=== PATIENT | male | born 1995 | race African-American/Black ===

== ENCOUNTER → 2019-06-01 | Outpatient (CLI) | payer BC ==
[~2019-06-01] VITALS: Ht 190.5 cm; Wt 98.6 kg
[~2019-06-01] MED LIST: ACETAMINOPHEN 325 MG TABLET ONE; ACETAMINOPHEN 325 MG TABLET PO NR; INFLIXIMAB DYYB IV NR; NORMAL SALINE IV NR; diphenhydrAMINE 50 MG/ML INJ (BENADRYL) IV NR; diphenhydrAMINE 50 MG/ML INJ (BENADRYL) ONE
[2019-06-01 14:30] VITALS: BP 129/70
--- NOTE | 2019-06-01 17:00 | NUR ---
INFUSION COMPLETED, TOLERATED WELL, MONITORED FOR 30 MINUTES AFTER. NO CHANGE, NO C/O.
== END ==
LOC: SDC 13:50
PROVIDERS: ATTEND Internal Medicine
DX: K50.90 Crohn's disease, unspecified, without complications (principal)
CPT/HCPCS: 96365; 96366; 96374; Q5102

== ENCOUNTER 2019-11-19 10:52 | Emergency (ER) | payer BC ==
[~2019-11-19] VITALS: Ht 190.5 cm; Wt 96.3 kg
--- NOTE | 2019-11-19 11:03 | ED GI ---
General Stated Complaint: CONSTIPATION Source of Information: Patient Exam Limitations: No Limitations History of Present Illness Date Seen by Provider: Nov 19, 2019 Time Seen by Provider: 11:01 Initial Comments To ER with reports of constipation. He's had no bowel movement in 8 days. He takes Inflectra IV every 8 weeks for Crohn's disease. He took a Dulcolax suppository last night, he is already on Metamucil and MiraLAX. Denies much abdominal pain denies any nausea vomiting fevers. States that he feels the urge to have a bowel movement but is unable to do so. He had an episode similar to this in the past and was given a soapsuds enema which did alleviate his problems. 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 Timing/Duration: 6-7 Days Severity/Quality: Moderate Location: Generalized Abdomen Radiation: No Radiation Associated Symptoms: Nausea/Vomiting Allergies and Home Medications Allergies Coded Allergies: No Known Drug Allergies (Unverified , 06/01/19) Home Medications Magnesium Citrate 296 Ml Solution, 296 ML PO ONCE Prescribed by: FABIOLA SPENCER on 11/19/19 1346 Patient Home Medication List Home Medication List Reviewed: Yes Review of Systems Review of Systems Constitutional: see HPI EENTM: No Symptoms Reported Respiratory: No Symptoms Reported Cardiovascular: No Symptoms Reported Gastrointestinal: See HPI; Denies Abdominal Pain; Constipated Genitourinary: No Symptoms Reported Musculoskeletal: no symptoms reported Skin: no symptoms reported Psychiatric/Neurological: No Symptoms Reported Endocrine: No Symptoms Reported Hematologic/Lymphatic: No Symptoms Reported Past Qnptubi-Chsqxr-Dgnpcb Hx Patient Social History Recent Foreign Travel: No Contact w/Someone Who Travel: No Physical Exam Vital Signs Vital Signs - First Documented 11/19/19 11:00 Temp 36.7 Pulse 72 Resp 18 B/P (MAP) 137/85 (102) Pulse Ox 96 O2 Delivery Room Air Capillary Refill : Height/Weight/BMI Height: '" Weight: lbs. oz. kg; BMI Method: General Appearance: WD/WN, no apparent distress Respiratory: normal breath sounds, no respiratory distress, no accessory muscle use Cardiovascular: regular rate, rhythm, no murmur Gastrointestinal: normal bowel sounds; No non tender; soft Extremities: normal range of motion Neurologic/Psychiatric: alert, normal mood/affect, oriented x 3 Skin: normal color, warm/dry Progress/Results/Core Measures Results/Orders My Orders Orders - FABIOLA SPENCER APRN Acute Abd Series (11/19/19 11:03) Soap Suds Enema (11/19/19 11:03) Vital Signs/I&O 11/19/19 11:00 Temp 36.7 Pulse 72 Resp 18 B/P (MAP) 137/85 (102) Pulse Ox 96 O2 Delivery Room Air Departure Communication (Admissions) [id number]-He did have a large BM after 2 soapsuds enemas. Will dc to home and have him follow up with [employer]. He has no pain or bloody stools, no fevers or chills. No value to CT imaging or laboratory workup. Impression Primary Impression: Fecal impaction Disposition: 01 HOME, SELF-CARE Condition: Stable Departure-Patient Inst. Decision time for Depature: 11:44 Referrals: NO,LOCAL PHYSICIAN (PCP) Primary Care Physician IVAN BAY MD Patient Instructions: Fecal Impaction (DC) Scripts Magnesium Citrate (Magnesium Citrate) 296 Ml Solution 296 ML PO ONCE, #1 EA Prov: FABIOLA SPENCER APRN 11/19/19 Copy Copies To 1: IVAN BAY MD, PETER J APRN Nov 19, 2019 11:03
--- OUTSIDE RECORDS SUMMARY | 2019-11-19 11:14 | XMS REPORT | Continuity of Care Document ---
Author Organization Unknown Address Unknown Phone Unavailable Allergies Active Description Code Type Severity Reaction Onset Reported/Identified Relationship to Patient Clinical Status Yes No Known Drug Allergies [id number] Drug Allergy Unknown N/A 06/01/2019 Medications There is no data. Problems Date Dx Coded Attending Type Code Diagnosis Diagnosed By 06/02/2019 SHANIQUE BURGESS, IVAN Her Ot K50.90 CROHN'S DISEASE, UNSPECIFIED, WITHOUT CO 06/28/2019 IVAN BAY MD Ot K50.90 CROHN'S DISEASE, UNSPECIFIED, WITHOUT CO Procedures There is no data. Results There is no data. Encounters ACCT No. Visit Date/Time Discharge Status Pt. Type Provider Facility Loc./Unit Complaint [id number] 07/27/2019 13:00:00 020 23:59:59 CLS Preadmit IVAN BAY MD [facility] CROHNS DISEASE [id number] 06/01/2019 13:50:00 020 23:59:59 CLS Outpatient IVAN BAY MD [facility] CROHNS DISEASE
--- NOTE | 2019-11-19 11:16 | NUR ---
TO X RAY PER W/C
--- NOTE | 2019-11-19 11:45 | Diagnostic Imaging Report ---
INDICATION: Constipation. Time of Exam: 11:25 AM FINDINGS: The heart size is normal. The lungs are clear. No free air is identified. The bowel gas pattern demonstrates a focal mild to moderately distended bowel loop in the central left abdomen. Remaining bowel loops are normal caliber. There is moderate stool in the colon. No pathologic calcifications are seen. IMPRESSION: 1. Nonspecific bowel gas pattern with focal moderate gaseous distended bowel loop in the left abdomen. 2. There is moderate stool in the colon suggestive of constipation. Dictated by: Dictated on workstation # [id number]
--- NOTE | 2019-11-19 11:46 | NUR ---
PATIENT WANTD TO GIVE SELF SS ENEMA INSTRUCTED BY Miriam KAY APRN HOW TO GIVE
--- NOTE | 2019-11-19 13:05 | NUR ---
Asim chong in [facility] - 11/19/19 at 1307 by PMCCLURE PATIENT
--- NOTE | 2019-11-19 13:07 | NUR ---
PATIENT CON'T HAVE BM.
[2019-11-19] MEDS ORDERED: MAGN296S71 PO (13:46)
[2019-11-19 13:52] VITALS: BP 137/85
== END 2019-11-19 13:52 | disposition home or self-care (01) ==
LOC: EDUNIT# 10:52 → ER 10:53
DX: K59.00 Constipation, unspecified (principal)
CPT/HCPCS: 74022

== ENCOUNTER 2021-01-13 19:01 | Emergency (ER) | payer BC ==
[~2021-01-13 19:01] MED LIST changes: -ACETAMINOPHEN 325 MG TABLET ONE; -ACETAMINOPHEN 325 MG TABLET PO NR; -INFLIXIMAB DYYB IV NR; +MAGN296S71 PO; -NORMAL SALINE IV NR; -diphenhydrAMINE 50 MG/ML INJ (BENADRYL) IV NR; -diphenhydrAMINE 50 MG/ML INJ (BENADRYL) ONE
--- NOTE | 2021-01-13 19:36 | ED Upper Extremity ---
General Stated Complaint: R ELBOW PREV INJ/SWELLING Source: patient Exam Limitations: no limitations (FABIOLA SPENCER APRN) History of Present Illness Date Seen by Provider: Jan 13, 2021 Time Seen by Provider: 19:31 Initial Comments To ER with right elbow and forearm swelling and pain. About 2 weeks ago he had an abscess to one of his hips and had incision and drainage done and was on Bactrim. Then last weekend, 7 days ago during a football game for [employer] [facility] [employer] where he plays he hit his right elbow on a player's helmet. Does not believe there was any break in the skin that he noticed. He initially had a little swelling at the site but subsequently has developed swelling to encompass the ulnar side of the forearm. No fevers or chills. He saw [facility] this week and was given doxycycline but denies much improvement. He is on infliximab every 8 weeks infusion for Crohn's disease Onset: last week Severity: moderate Pain/Injury Location: right elbow Modifying Factors: Worse With Movement (FABIOLA SPENCER APRN) Allergies and Home Medications Allergies Coded Allergies: No Known Drug Allergies (Unverified , 06/01/19) Patient Home Medication List Home Medication List Reviewed: Yes (FABIOLA SPENCER APRN) Clindamycin HCl (Clindamycin HCl) 300 Mg Capsule, 300 MG PO QID Prescribed by: FABIOLA SPENCER on 01/13/21 2111 Magnesium Citrate (Magnesium Citrate) 296 Ml Solution, 296 ML PO ONCE Prescribed by: FABIOLA SPENCER on 11/19/19 1346 Review of Systems Constitutional: see HPI; No chills, No fever EENTM: see HPI Respiratory: no symptoms reported Cardiovascular: no symptoms reported Genitourinary: no symptoms reported Musculoskeletal: no symptoms reported Skin: see HPI Psychiatric/Neurological: No Symptoms Reported (FABIOLA SPENCER APRN) Past Rrxrmxj-Zcxclp-Vbrtyd Hx Past Medical History Surgeries: Yes (ANAL ABSCESS) Respiratory: No Cardiac: No Neurological: No Genitourinary: No Gastrointestinal: Yes Crohns Disease Musculoskeletal: No Endocrine: No HEENT: No Cancer: No Psychosocial: No (FABIOLA SPENCER APRN) Physical Exam Vital Signs Vital Signs - First Documented (STEPH AC DO) Vital Signs Capillary Refill : (FABIOLA SPENCER APRN) Height, Weight, BMI Height: '" Weight: lbs. oz. kg; 26.00 BMI Method: General Appearance: WD/WN, no apparent distress Respiratory: no respiratory distress, no accessory muscle use Gastrointestinal: normal bowel sounds, non tender Shoulder: normal inspection, non-tender Elbow/Forearm: Right, pain, swelling (There is swelling about the ulnar and proximal volar side of the right forearm. There is a fluctuant draining punctum over the olecranon bursa. Culture of this was collected and sent to lab.) Wrist: Yes normal inspection, Yes non-tender Hand: normal inspection, non-tender Neurologic/Psychiatric: alert, normal mood/affect, oriented x 3 Skin: normal color, warm/dry (FABIOLA SPENCER APRN) Progress/Results/Core Measures Results/Orders Lab Results Laboratory Tests Test 01/13/21 19:30 Range/Units White Blood Count 10.5 4.3-11.0 10^3/uL Red Blood Count 5.05 4.30-5.52 10^6/uL Hemoglobin 14.3 13.3-17.7 g/dL Hematocrit 44 40-54 % Mean Corpuscular Volume 87 80-99 fL Mean Corpuscular Hemoglobin 28 25-34 pg Mean Corpuscular Hemoglobin Concent 33 32-36 g/dL Red Cell Distribution Width 12.6 10.0-14.5 % Platelet Count 200 130-400 10^3/uL Mean Platelet Volume 11.4 9.0-12.2 fL Immature Granulocyte % (Auto) 0 % Neutrophils (%) (Auto) 78 H 42-75 % Lymphocytes (%) (Auto) 14 12-44 % Monocytes (%) (Auto) 7 0-12 % Eosinophils (%) (Auto) 0 0-10 % Basophils (%) (Auto) 0 0-10 % Neutrophils # (Auto) 8.2 H 1.8-7.8 10^3/uL Lymphocytes # (Auto) 1.5 1.0-4.0 10^3/uL Monocytes # (Auto) 0.7 0.0-1.0 10^3/uL Eosinophils # (Auto) 0.0 0.0-0.3 10^3/uL Basophils # (Auto) 0.0 0.0-0.1 10^3/uL Immature Granulocyte # (Auto) 0.0 0.0-0.1 10^3/uL Sodium Level 141 135-145 MMOL/L Potassium Level 4.0 3.6-5.0 MMOL/L Chloride Level 107 98-107 MMOL/L Carbon Dioxide Level 22 21-32 MMOL/L Anion Gap 12 5-14 MMOL/L Blood Urea Nitrogen 15 7-18 MG/DL Creatinine 1.25 0.60-1.30 MG/DL Estimat Glomerular Filtration Rate 87 BUN/Creatinine Ratio 12 Glucose Level 109 H 70-105 MG/DL Calcium Level 10.1 8.5-10.1 MG/DL Corrected Calcium 9.9 8.5-10.1 MG/DL Total Bilirubin 1.5 H 0.1-1.0 MG/DL Aspartate Amino Transf (AST/SGOT) 21 5-34 U/L Alanine Aminotransferase (ALT/SGPT) 23 0-55 U/L Alkaline Phosphatase 74 40-136 U/L C-Reactive Protein High Sensitivity 0.52 H 0.00-0.50 MG/DL Total Protein 7.4 6.4-8.2 GM/DL Albumin 4.2 3.2-4.5 GM/DL (STEPH AC DO) Departure Communication (Admissions) Family Conversation NAME: MEHNAZ DORSEY [facility] REC#: [id number] PT STATUS: REG ER : 1995 PHYSICIAN: FABIOLA SPENCER APRN ADMIT DATE: 01/13/21/ER Draft Date of Exam:01/13/21 CT EXTREMITY UPPER RIGHT W PROCEDURE: CT right upper extremity with contrast. TECHNIQUE: Axial images were obtained through the right upper extremity after intravenous contrast and reformatted into coronal and sagittal oblique planes. Auto Exposure Controls were utilized during the CT exam to meet ALARA standards for radiation dose reduction. INDICATION: Infection. Pain. EXAMINATION: Post IV contrast-enhanced CT of the right elbow performed. COMPARISON: No priors or plain films for comparison or correlation. FINDINGS: There is subcutaneous edema dorsally about the mid to distal forearm through the elbow and terminating just above the olecranon. No rim-enhancing discrete or drainable fluid collection. There are no findings of a diana abscess. No soft tissue gas. There is no displacement of the fat pads. No elbow joint effusion. No abnormal periosteal reaction. No bony destructive process. No fracture demonstrated. No opaque foreign body and no soft tissue gas. IMPRESSION: Dorsal subcutaneous edema. Given the history presumed cellulitis but no abscess or drainable fluid collection. No joint effusion, foreign body or gas. Dictated on workstation # [id number] Dict: 01/13/212024 Trans: 01/13/212058 [facility] [id number] Interpreted by: VIKAS ROMANO Electronically signed by: (FABIOLA SPENCER APRN) Impression Primary Impression: Cellulitis of right arm Disposition: HOME, SELF-CARE Condition: Stable Departure-Patient Inst. Decision time for Depature: 21:09 (FABIOLA SPENCER APRN) Referrals: [facility] (PCP) Primary Care Physician Patient Instructions: Cellulitis (Skin Infection), Adult (DC) Add. Discharge Instructions: 1. Return to ER for any concerns 2. Follow-up with your doctor next week 3. add the new antibiotic called clindamycin to your current antibiotic doxycycline. Pain medication as directed. Keep the arm elevated as much as possible. Follow-up with [facility] on Friday and return to ER in the meantime for any worsening. Scripts Clindamycin HCl (Clindamycin HCl) 300 Mg Capsule 300 MG PO QID, #28 CAP Prov: FABIOLA SPENCER APRN 01/13/21 ATTENDING PHYSICIAN NOTE: I WAS PHYSICALLY PRESENT ER PHYSICIAN WHEN THIS PATIENT WAS IN ER, BUT I WAS NOT INVOLVED IN DECISION MAKING OR ANY CARE OF THIS PATIENT. (STEPH AC DO) FABIOLA SPENCER APRN Jan 13, 2021 19:36 STEPH AC DO Jan 15, 2021 04:37
[2021-01-13 19:39] LABS: BASOPHILS % (AUTO) 0 % (0-10); EOSINOPHILS % (AUTO) 0 % (0-10); HEMATOCRIT 44 % (40-54); HEMOGLOBIN 14.3 g/dL (13.3-17.7); LYMPHOCYTES # (AUTO) 1.5 10^3/uL (1.0-4.0); LYMPHOCYTES % (AUTO) 14 % (12-44); MEAN CORPUSCULAR HEMOGLOBIN 28 pg (25-34); MEAN CORPUSCULAR HGB CONC 33 g/dL (32-36); MEAN CORPUSCULAR VOLUME 87 fL (80-99); MEAN PLATELET VOLUME 11.4 fL (9.0-12.2); MONOCYTES # (AUTO) 0.7 10^3/uL (0.0-1.0); MONOCYTES % (AUTO) 7 % (0-12); NEUTROPHILS # (AUTO) 8.2 10^3/uL (1.8-7.8); NEUTROPHILS % (AUTO) 78 % (42-75); PLATELET COUNT 200 10^3/uL (130-400); WHITE BLOOD COUNT 10.5 10^3/uL (4.3-11.0)
[2021-01-13 20:07] LABS: ALBUMIN 4.2 GM/DL (3.2-4.5); BILIRUBIN,TOTAL 1.5 MG/DL (0.1-1.0); CALCIUM 10.1 MG/DL (8.5-10.1); CREATININE SERUM 1.25 MG/DL (0.60-1.30); TOTAL PROTEIN 7.4 GM/DL (6.4-8.2)
[2021-01-13] MEDS ORDERED: NS 100 ML (IVPB) BAG IV ONE (20:15)
[2021-01-13] MEDS ORDERED: HOLD METFORMIN - RECEIVED CONTRAST 20 ML VIAL IV SCH (20:15)
[2021-01-13] MEDS ORDERED: IOHEXOL 350 MG/ML 100 ML (OMNIPAQUE 350) VIAL IV ONE (20:15)
[2021-01-13] MEDS ORDERED: CLINDAMYCIN 900 MG/50 ML IVPB 50 ML IV ONE (20:15)
--- NOTE | 2021-01-13 21:00 | Diagnostic Imaging Report ---
PROCEDURE: CT right upper extremity with contrast. TECHNIQUE: Axial images were obtained through the right upper extremity after intravenous contrast and reformatted into coronal and sagittal oblique planes. Auto Exposure Controls were utilized during the CT exam to meet ALARA standards for radiation dose reduction. INDICATION: Infection. Pain. EXAMINATION: Post IV contrast-enhanced CT of the right elbow performed. COMPARISON: No priors or plain films for comparison or correlation. FINDINGS: There is subcutaneous edema dorsally about the mid to distal forearm through the elbow and terminating just above the olecranon. No rim-enhancing discrete or drainable fluid collection. There are no findings of a diana abscess. No soft tissue gas. There is no displacement of the fat pads. No elbow joint effusion. No abnormal periosteal reaction. No bony destructive process. No fracture demonstrated. No opaque foreign body and no soft tissue gas. IMPRESSION: Dorsal subcutaneous edema. Given the history presumed cellulitis but no abscess or drainable fluid collection. No joint effusion, foreign body or gas. Dictated by: Dictated on workstation # [id number]
[2021-01-13] MEDS ORDERED: CLIN300C12 PO (21:11)
[2021-01-13] MEDS ORDERED: RX-CLINDAMYCIN 150 MG (CLEOCIN) CAP PPK#4 PO STA (21:11)
[2021-01-13 21:25] VITALS: BP 128/78
== END 2021-01-13 21:25 | disposition home or self-care (01) ==
LOC: EDUNIT# 19:01 → ER 19:03
DX: L03.113 Cellulitis of right upper limb (principal); K50.90 Crohn's disease, unspecified, without complications; Z79.899 Other long term (current) drug therapy
CPT/HCPCS: 36415; 73201; 80053; 85025; 86141; 87070; 87077; 87186; 87205

== ENCOUNTER 2021-02-27 21:56 | Emergency (ER) | payer BC, OTHER ==
[~2021-02-27] VITALS: Ht 190 cm; Wt 95.0 kg
[~2021-02-27 21:56] MED LIST changes: +CLIN-144 PO
--- NOTE | 2021-02-27 22:48 | ED General ---
General Chief Complaint: - Reproductive Stated Complaint: BLOOD IN STOOL Source of Information: Patient History of Present Illness Date Seen by Provider: Feb 27, 2021 Time Seen by Provider: 22:38 Initial Comments PT ARRIVES VIA POV FROM HOME STATES HE HAS CROHN'S DISEASE, AND GETS INFLECTRA INFUSIONS EVERY 8 WEEKS, IS OVERDUE BY A COUPLE OF WEEKS AND WAS SUPPOSED TO GET AN INFUSION TODAY,BUT DID NOT GO STATES HE HAD HAD SOME BLOODY STOOLS--BUT NO BM FOR THE LAST 2 DAYS. HAS CHRONIC CONSTIPATION, BUT DOES NOT TAKE ANY MEDICATION FOR IT. PT IS HERE TONIGHT BECAUSE HE HAS HAD BLOOD IN HIS URINE 3 TIMES TODAY NO PAIN ON URINATION OR ANY OTHER URINARY SYMPTOMS NO ABDOMINAL PAIN OR FLANK PAIN OR BACK PAIN NO FEVER NO NAUSEA/VOMITING PCP: NONE GI: DR. LIEBERMAN /[facility] Allergies and Home Medications Allergies Coded Allergies: No Known Drug Allergies (Unverified , 06/01/19) Patient Home Medication List Home Medication List Reviewed: Yes Clindamycin HCl (Clindamycin HCl) 300 Mg Capsule, 300 MG PO QID Prescribed by: FABIOLA SPENCER on 01/13/211 Magnesium Citrate (Magnesium Citrate) 296 Ml Solution, 296 ML PO ONCE Prescribed by: FABIOLA SPENCER on 11/19/19 1346 Review of Systems Review of Systems Constitutional: no symptoms reported; No dizziness, No fever Respiratory: no symptoms reported Cardiovascular: no symptoms reported Gastrointestinal: see HPI; No abdominal pain; constipation; No diarrhea, No nausea, No vomiting; other (BLOODY STOOLS) Genitourinary: see HPI; No discharge, No dysuria, No frequency; hematuria; No hesitancy, No nocturia, No pain Musculoskeletal: no symptoms reported; No back pain Skin: no symptoms reported Psychiatric/Neurological: No Symptoms Reported Hematologic/Lymphatic: No Symptoms Reported Immunological/Allergic: no symptoms reported Past Wjikbnj-Nywelv-Cjytqc Hx Patient Social History Tobacco Use?: No Substance use?: Yes Substance type: Marijuana Alcohol Use?: No Past Medical History Surgery/Hospitalization HX: MED HX: [facility] Surgeries: Yes (ANAL ABSCESS) Rectal Respiratory: No Cardiac: No Neurological: No Genitourinary: No Gastrointestinal: Yes Crohns Disease Musculoskeletal: No Endocrine: No HEENT: No Cancer: No Psychosocial: No Integumentary: No Blood Disorders: No Family Medical History PAST SURGICAL HISTORY: -ANAL ABSCESS I&D -EGD/COLONOSCOPY Physical Exam Vital Signs Vital Signs - First Documented 02/27/21 22:46 Pulse 78 Resp 16 B/P (MAP) 120/89 (99) Pulse Ox 98 O2 Delivery Room Air Capillary Refill : Height, Weight, BMI Height: '" Weight: lbs. oz. kg; 26.00 BMI Method: General Appearance: No Apparent Distress, WD/WN HEENT: PERRL/EOMI; No Pale Conjunctivae (L), No Pale Conjunctivae (R) Neck: Normal Inspection Respiratory: Normal Breath Sounds, No Accessory Muscle Use, No Respiratory D istress Cardiovascular: Regular Rate, Rhythm, No Murmur, Normal Peripheral Pulses Gastrointestinal: Normal Bowel Sounds, No Organomegaly, No Pulsatile Mass, Non Tender, Soft Back: No CVA Tenderness Extremity: Normal Capillary Refill, Normal Inspection, Normal Range of Motion, Non Tender, No Calf Tenderness, No Pedal Edema Neurologic/Psychiatric: Alert, Oriented x3, No Motor/Sensory Deficits, Normal Mood/Affect, manager of procurement II-XII Norm as Tested Skin: Normal Color (PT IS BLACK), Warm/Dry; No Rash Progress/Results/Core Measures Suspected Sepsis SIRS Temperature: Pulse: Respiratory Rate: Laboratory Tests 02/27/21 23:00: White Blood Count 9.5 Blood Pressure / Mean: Laboratory Tests 02/27/21 23:00: Creatinine 1.23, INR Comment 1.1, Platelet Count 246, Total Bilirubin 1.1H Results/Orders Lab Results Laboratory Tests Test 02/27/21 21:56 02/27/21 23:00 Range/Units Urine Color YELLOW Urine Clarity CLEAR Urine pH 7.5 5-9 Urine Specific [place] 1.020 1.016-1.022 Urine Protein NEGATIVE NEGATIVE Urine Glucose (UA) NEGATIVE NEGATIVE Urine Ketones NEGATIVE NEGATIVE Urine Nitrite NEGATIVE NEGATIVE Urine Bilirubin NEGATIVE NEGATIVE Urine Urobilinogen 0.2 < = 1.0 MG/DL Urine Leukocyte Esterase NEGATIVE NEGATIVE Urine RBC (Auto) 3+ H NEGATIVE Urine RBC 5-10 H /HPF Urine WBC 10-25 H /HPF Urine Squamous Epithelial Cells NONE /HPF Urine Renal Epithelial Cells NONE /HPF Urine Crystals NONE /LPF Urine Bacteria NEGATIVE /HPF Urine Casts NONE /LPF Urine Mucus SMALL H /LPF Urine Culture Indicated NO Urine Opiates Screen NEGATIVE NEGATIVE Urine Oxycodone Screen NEGATIVE NEGATIVE Urine Methadone Screen NEGATIVE NEGATIVE Urine Propoxyphene Screen NEGATIVE NEGATIVE Urine Barbiturates Screen NEGATIVE NEGATIVE Ur Tricyclic Antidepressants Screen NEGATIVE NEGATIVE Urine Phencyclidine Screen NEGATIVE NEGATIVE Urine Amphetamines Screen NEGATIVE NEGATIVE Urine Methamphetamines Screen NEGATIVE NEGATIVE Urine Benzodiazepines Screen NEGATIVE NEGATIVE Urine Cocaine Screen NEGATIVE NEGATIVE Urine Cannabinoids Screen POSITIVE H NEGATIVE White Blood Count 9.5 4.3-11.0 10^3/uL Red Blood Count 5.45 4.30-5.52 10^6/uL Hemoglobin 15.3 13.3-17.7 g/dL Hematocrit 47 40-54 % Mean Corpuscular Volume 86 80-99 fL Mean Corpuscular Hemoglobin 28 25-34 pg Mean Corpuscular Hemoglobin Concent 33 32-36 g/dL Red Cell Distribution Width 12.3 10.0-14.5 % Platelet Count 246 130-400 10^3/uL Mean Platelet Volume 11.0 9.0-12.2 fL Immature Granulocyte % (Auto) 0 % Neutrophils (%) (Auto) 72 42-75 % Lymphocytes (%) (Auto) 20 12-44 % Monocytes (%) (Auto) 6 0-12 % Eosinophils (%) (Auto) 1 0-10 % Basophils (%) (Auto) 1 0-10 % Neutrophils # (Auto) 6.8 1.8-7.8 10^3/uL Lymphocytes # (Auto) 1.9 1.0-4.0 10^3/uL Monocytes # (Auto) 0.6 0.0-1.0 10^3/uL Eosinophils # (Auto) 0.1 0.0-0.3 10^3/uL Basophils # (Auto) 0.1 0.0-0.1 10^3/uL Immature Granulocyte # (Auto) 0.0 0.0-0.1 10^3/uL Prothrombin Time 14.8 H 12.2-14.7 SEC INR Comment 1.1 0.8-1.4 Activated Partial Thromboplast Time 31 24-35 SEC Sodium Level 140 135-145 MMOL/L Potassium Level 4.0 3.6-5.0 MMOL/L Chloride Level 105 98-107 MMOL/L Carbon Dioxide Level 23 21-32 MMOL/L Anion Gap 12 5-14 MMOL/L Blood Urea Nitrogen 13 7-18 MG/DL Creatinine 1.23 0.60-1.30 MG/DL Estimat Glomerular Filtration Rate 88 BUN/Creatinine Ratio 11 Glucose Level 98 70-105 MG/DL Calcium Level 9.3 8.5-10.1 MG/DL Corrected Calcium 9.1 8.5-10.1 MG/DL Total Bilirubin 1.1 H 0.1-1.0 MG/DL Aspartate Amino Transf (AST/SGOT) 21 5-34 U/L Alanine Aminotransferase (ALT/SGPT) 19 0-55 U/L Alkaline Phosphatase 66 40-136 U/L Total Protein 7.3 6.4-8.2 GM/DL Albumin 4.2 3.2-4.5 GM/DL Serum Alcohol < 10 <10 MG/DL My Orders Orders - STEPH AC DO Ed Iv/Invasive Line Start (02/27/21 22:39) Alcohol (02/27/21 22:39) Cbc With Automated Diff (02/27/21 22:39) Comprehensive Metabolic Panel (02/27/21 22:39) Drug Screen Stat (Urine) (02/27/21 22:39) Protime With Inr (02/27/21 22:39) Partial Thromboplastin Time (02/27/21 22:39) Ua Culture If Indicated (02/27/21 22:39) Ct Abd/Pelvis Wo(Kidney Stone) (02/27/21 22:40) Abdomen/Kub 1view (02/27/21 22:40) Vital Signs/I&O 02/27/21 02/27/21 02/28/21 22:46 22:51 00:09 Pulse 78 74 87 Resp 16 16 16 B/P (MAP) 120/89 (99) 120/89 120/89 Pulse Ox 98 98 98 O2 Delivery Room Air Room Air Room Air Capillary Refill : Progress Note : Progress Note NO SYMPTOMS DURING ER STAY Diagnostic Imaging Comments PER RADIOLOGIST REPORTS AT 2349 ABDOMEN XRAYS: FINDINGS: Large amount of stool throughout the colon and rectum. Nonspecific small bowel gas pattern. No suspicious radiopaque densities. No acute osseous findings. IMPRESSION: Large amount of stool throughout the colon and rectum consistent with constipation. CT ABDOMEN/PELVIS: FINDINGS: The lung bases are clear. The liver, gallbladder, pancreas, spleen, adrenals, kidneys, collecting systems and bladder are negative on this noncontrast exam. Normal appendix. Large amount of stool throughout the colon and distended rectum. No evidence of small bowel obstruction. No free intraperitoneal air or fluid. No lymphadenopathy. No acute osseous findings. IMPRESSION: 1. No renal stones identified. No hydronephrosis. 2. Large amount of stool throughout the colon and distended rectum consistent with constipation with possible rectal fecal impaction. Reviewed: Reviewed by Me Departure Impression Primary Impression: Hematuria Additional Impressions: Constipation Hx of Crohn's disease Disposition: HOME, SELF-CARE Condition: Stable Departure-Patient Inst. Decision time for Depature: 23:50 Referrals: [facility] (PCP) Primary Care Physician SUHAS WELLER MD Patient Instructions: Blood in the Urine (Hematuria), Adult (DC), Constipation, Adult ED, Crohn's Disease (DC) Add. Discharge Instructions: TAKE MIRALAX EVERY DAY MAY USE DULCOLAX SUPPOSITORIES AND FLEET'S ENEMAS FOR BM LOTS OF CLEAR LIQUIDS--NO COFFEE, POP OR TEA FOLLOW UP WITH DR. WELLER, UROLOGIST, FOR FURTHER EVALUATION OF BLOOD IN URINE--CALL IN AM TO SCHEDULE APPOINTMENT FOLLOW UP WITH YOUR DIRECTOR [employer] FOR YOUR ROUTINE INFUSIONS--CALL TODAY TO RE-SCHEDULE All discharge instructions reviewed with patient and/or family. Voiced understanding. STEPH AC DO Feb 27, 2021 22:48
[2021-02-27 23:02] LABS: BILIRUBIN,URINE NEGATIVE (NEGATIVE); CLARITY,URINE CLEAR; COLOR,URINE YELLOW; GLUCOSE, URINE (UA) NEGATIVE (NEGATIVE); KETONES,URINE NEGATIVE (NEGATIVE); LEUKOCYTE ESTERASE ,URINE NEGATIVE (NEGATIVE); NITRITE,URINE NEGATIVE (NEGATIVE); PH,URINE 7.5 (5-9); PROTEIN,URINE NEGATIVE (NEGATIVE)
[2021-02-27 23:07] LABS: BASOPHILS # (AUTO) 0.1 10^3/uL (0.0-0.1); BASOPHILS % (AUTO) 1 % (0-10); EOSINOPHILS # (AUTO) 0.1 10^3/uL (0.0-0.3); EOSINOPHILS % (AUTO) 1 % (0-10); HEMATOCRIT 47 % (40-54); HEMOGLOBIN 15.3 g/dL (13.3-17.7); LYMPHOCYTES # (AUTO) 1.9 10^3/uL (1.0-4.0); LYMPHOCYTES % (AUTO) 20 % (12-44); MEAN CORPUSCULAR HEMOGLOBIN 28 pg (25-34); MEAN CORPUSCULAR HGB CONC 33 g/dL (32-36); MEAN CORPUSCULAR VOLUME 86 fL (80-99); MONOCYTES # (AUTO) 0.6 10^3/uL (0.0-1.0); MONOCYTES % (AUTO) 6 % (0-12); NEUTROPHILS # (AUTO) 6.8 10^3/uL (1.8-7.8); NEUTROPHILS % (AUTO) 72 % (42-75); PLATELET COUNT 246 10^3/uL (130-400); WHITE BLOOD COUNT 9.5 10^3/uL (4.3-11.0)
[2021-02-27 23:08] LABS: BACTERIA,URINE NEGATIVE /HPF
[2021-02-27 23:12] LABS: AMPHETAMINE SCREEN, URINE NEGATIVE (NEGATIVE); BARBITURATE SCREEN URINE NEGATIVE (NEGATIVE); BENZODIAZEPINES SCREEN URINE NEGATIVE (NEGATIVE); CANNABINOID SCREEN, URINE POSITIVE (NEGATIVE); COCAINE SCREEN URINE NEGATIVE (NEGATIVE); METHADONE STAT NEGATIVE (NEGATIVE); METHAMPHETAMINE SCREEN URINE S NEGATIVE (NEGATIVE); OPIATE SCREEN URINE NEGATIVE (NEGATIVE); OXYCODONE STAT NEGATIVE (NEGATIVE); PROPOXYPHENE STAT NEGATIVE (NEGATIVE); TRICYCLIC ANTIDEPRESSANTS SCRE NEGATIVE (NEGATIVE)
[2021-02-27 23:17] LABS: ALBUMIN 4.2 GM/DL (3.2-4.5); CHLORIDE 105 MMOL/L (98-107); SODIUM 140 MMOL/L (135-145)
[2021-02-27 23:18] LABS: CALCIUM 9.3 MG/DL (8.5-10.1); INR 1.1 (0.8-1.4); PROTHROMBIN TIME PATIENT 14.8 SEC (12.2-14.7)
[2021-02-27 23:20] LABS: GLUCOSE 98 MG/DL (70-105); TOTAL PROTEIN 7.3 GM/DL (6.4-8.2)
[2021-02-27 23:21] LABS: BILIRUBIN,TOTAL 1.1 MG/DL (0.1-1.0); CARBON DIOXIDE 23 MMOL/L (21-32)
[2021-02-27 23:23] LABS: ALKALINE PHOSPHATASE 66 U/L (40-136); CREATININE SERUM 1.23 MG/DL (0.60-1.30); GFR ESTIMATED 88
[2021-02-27 23:24] LABS: BUN/CREATININE RATIO 11
[2021-02-27 23:26] LABS: ALANINE AMINOTRANSFERASE 19 U/L (0-55)
--- NOTE | 2021-02-27 23:40 | Diagnostic Imaging Report ---
PROCEDURE: CT urinary tract, rule out kidney stone. TECHNIQUE: Multiple contiguous axial images were obtained through the abdomen and pelvis without the use of intravenous contrast. Auto Exposure Controls were utilized during the CT exam to meet ALARA standards for radiation dose reduction. INDICATION: Flank pain. Suspected kidney stone. COMPARISON: None. FINDINGS: The lung bases are clear. The liver, gallbladder, pancreas, spleen, adrenals, kidneys, collecting systems and bladder are negative on this noncontrast exam. Normal appendix. Large amount of stool throughout the colon and distended rectum. No evidence of small bowel obstruction. No free intraperitoneal air or fluid. No lymphadenopathy. No acute osseous findings. IMPRESSION: 1. No renal stones identified. No hydronephrosis. 2. Large amount of stool throughout the colon and distended rectum consistent with constipation with possible rectal fecal impaction. Dictated by: Dictated on workstation # [id number]
--- NOTE | 2021-02-27 23:44 | Diagnostic Imaging Report ---
EXAM: ABDOMEN/KUB 1VIEW INDICATION: Abdominal pain. COMPARISON: CT abdomen and pelvis without contrast also performed today. FINDINGS: Large amount of stool throughout the colon and rectum. Nonspecific small bowel gas pattern. No suspicious radiopaque densities. No acute osseous findings. IMPRESSION: Large amount of stool throughout the colon and rectum consistent with constipation. Dictated by: Dictated on workstation # [id number]
[2021-02-28 00:09] VITALS: BP 120/89
== END 2021-02-28 00:13 | disposition home or self-care (01) ==
LOC: EDUNIT# 21:56 → ER 21:58
DX: R31.9 Hematuria, unspecified (principal); K59.00 Constipation, unspecified
CPT/HCPCS: 74018; 74176; 80053; 80306; 81000; 85025; 85610; 85730; 99284; G0480; 36415; 80320